=== PATIENT | female | born 1995 | race Caucasian/White ===

== ENCOUNTER 2017-09-06 20:28 | Emergency (ER) | payer MEDICAID | END 2017-09-06 21:15 | disposition home or self-care (01) | LOC: FTE 20:28 → E/R 21:15 | DX: J20.9 Acute bronchitis, unspecified (principal); J30.9 Allergic rhinitis, unspecified | CPT/HCPCS: 99283; Z7502 ==

== ENCOUNTER 2018-01-08 07:34 | Outpatient (CLI) | payer MEDICAID ==
[2018-01-08 08:41] LABS: ADD UMIC YES; UR AMORPHOUS CRYSTAL FEW /HPF (NONE SEEN); UR ASCORBIC ACID NEGATIVE (NEGATIVE); UR BILIRUBIN (Dip) NEGATIVE (NEGATIVE); UR BLOOD (Dip) 2+ mg/dL (NEGATIVE); UR CLARITY SLIGHTLY CLOUDY (CLEAR); UR COLOR YELLOW (YELLOW); UR GLUCOSE (Dip) NEGATIVE (NEGATIVE); UR KETONES (Dip) NEGATIVE (NEGATIVE); UR LEUKOCYTE ESTERASE (Dip) 2+ Leu/ul (NEGATIVE); UR MUCUS FEW /HPF (NONE SEEN); UR NITRITE (Dip) NEGATIVE (NEGATIVE); UR RBC 1 /HPF (0-5); UR SPECIFIC GRAVITY (Dip) 1.018 (1.003-1.030); UR SQUAMOUS EPITHELIAL CELL FEW /HPF (FEW); UR TOTAL PROTEIN (Dip) NEGATIVE (NEGATIVE); UR UROBILINOGEN (Dip) NEGATIVE (NEGATIVE); UR WBC 11 /HPF (0-5)
== END 2018-01-08 12:15 | disposition home or self-care (01) ==
LOC: OBT 07:34 → L-D 07:34 → OBT 12:15
DX: Z3A.35 35 weeks gestation of pregnancy (principal)
CPT/HCPCS: 76818; 81001; 87086

== ENCOUNTER 2018-02-08 19:29 | Outpatient (CLI) | payer MEDICAID ==
[2018-02-08] MEDS ORDERED: CEFTRIAXONE 1 GM/50 ML (PMX) 50 ML IVPB (22:00)
[2018-02-08] MEDS ORDERED: SOD CHLORIDE 0.9% 1,000 ML IV ×2 (22:00)
== END 2018-02-08 22:00 | disposition home or self-care (01) ==
LOC: OBT 19:29 → L-D 19:34 → OBT 22:00
DX: O12.13 Gestational proteinuria, third trimester (principal); O36.8330 Maternal care for abnormalities of the fetal heart rate or rhythm, third trimester, not applicable or unspecified; Z3A.39 39 weeks gestation of pregnancy
CPT/HCPCS: 76815; 76818

== ENCOUNTER 2018-02-10 17:12 | Inpatient (IN) | payer MEDICAID ==
[2018-02-10 18:12] LABS: RUPTURE FETAL MEMBRANES POSITIVE (NEGATIVE)
[2018-02-10] MEDS ORDERED: METHYLERGONOVINE 0.2 MG INJ IM (19:30)
[2018-02-10] MEDS ORDERED: OXYTOCIN 30 UNITS/LR 500 ML IV (19:30)
[2018-02-10] MEDS ORDERED: IBUPROFEN 600 MG TAB PO (19:30)
[2018-02-10] MEDS ORDERED: CARBOPROST 250 MCG INJ IM (19:30)
[2018-02-10] MEDS ORDERED: LIDOCAINE 1% (MPF) 30 ML INJ INJ (19:30)
[2018-02-10] MEDS ORDERED: MISOPROSTOL 200 MCG TAB PR (19:30)
[2018-02-10] MEDS ORDERED: MISOPROSTOL 100 MCG TAB PO (21:00)
[2018-02-10] MEDS: LACTATED RINGER'S 1,000 ML IV* (21:43)
[2018-02-10] MEDS: AMPICILLIN 2 GM/NS (PMX) 100 ML IV (21:43)
[2018-02-10] MEDS: MISOPROSTOL 25 MCG CAPSULE PO (22:12)
[2018-02-10 22:46] LABS: ADD MAN DIFF? NO
[2018-02-10 22:54] LABS: WHITE BLOOD COUNT 10.8 10^3/ul (4.8-10.8)
[2018-02-10 22:54] LABS: BASOPHIL # 0.1 10^3/ul (0.0-0.1); BASOPHILS % 0.5 % (0.0-2.0); EOSINOPHILS # 0.1 10^3/ul (0.0-0.5); HEMATOCRIT 35.7 % (37.0-47.0); HEMOGLOBIN 12.2 g/dl (12.0-16.0); LYMPHOCYTES # 2.5 10^3/ul (0.8-2.9); LYMPHOCYTES % 23.4 % (15.0-51.0); MEAN CORPUSCULAR HEMOGLOBIN 32.7 pg (29.0-33.0); MEAN CORPUSCULAR HGB CONC 34.2 g/dl (32.0-37.0); MEAN CORPUSCULAR VOLUME 95.7 fl (82.0-101.0); MEAN PLATELET VOLUME 12.5 fl (7.4-10.4); MONOCYTE # 0.6 10^3/ul (0.3-0.9); MONOCYTES % 5.5 % (0.0-11.0); NEUTROPHIL # 7.4 10^3/ul (1.6-7.5); NEUTROPHILS % 68.5 % (39.0-77.0); PLATELET COUNT 203 10^3/UL (140-415); RED BLOOD COUNT 3.73 10^6/ul (4.20-5.40); RED CELL DISTRIBUTION WIDTH 12.5 % (11.5-14.5)
[2018-02-10 23:13] LABS: INR 0.91; PROTIME 12.3 Sec (11.9-14.9)
[2018-02-10 23:14] LABS: PARTIAL THROMBOPLASTIN TIME 26.4 Sec (25.0-35.0)
[2018-02-10 23:43] LABS: HEPATITIS B SURFACE ANTIGEN NEGATIVE (NEGATIVE)
[2018-02-11] MEDS: AMPICILLIN 1 GM/NS (PMX) 50 ML IV ×6 (01:35→21:11)
[2018-02-11] MEDS: MISOPROSTOL 25 MCG CAPSULE PO ×2 (01:35→05:56)
[2018-02-11] MEDS: LACTATED RINGER'S 1,000 ML IV* ×3 (06:00→19:30)
[2018-02-11] MEDS ORDERED: OXYTOCIN 30 UNITS/LR 500 ML IV (11:00)
[2018-02-11] MEDS: OXYTOCIN 30 UNITS/LR 500 ML IV (12:04)
[2018-02-11 15:37] LABS: RAPID PLASMA REAGIN NONREACTIVE (NR)
[2018-02-11] MEDS: BUTORPHANOL 2 MG INJ IV ×2 (17:52→22:33)
[2018-02-11] MEDS: DEXTROSE 5%-LR 1,000 ML IV (21:11)
[2018-02-12] MEDS: AMPICILLIN 1 GM/NS (PMX) 50 ML IV ×5 (02:16→17:00)
[2018-02-12] MEDS: LACTATED RINGER'S 1,000 ML IV* ×4 (05:50→17:10)
[2018-02-12] MEDS ORDERED: FENTAnyl 2MCG/ML-ROPIV 0.2% 100 ML (06:10)
[2018-02-12] MEDS: MINERAL OIL LIGHT 10 ML VIAL TOP (08:50)
[2018-02-12] MEDS: OXYTOCIN 30 UNITS/LR 500 ML IV ×2 (09:17→14:24)
[2018-02-12] MEDS ORDERED: METHYLERGONOVINE 0.2 MG INJ IM (09:30)
[2018-02-12] MEDS ORDERED: OXYTOCIN 30 UNITS/LR 500 ML IV (09:30)
[2018-02-12] MEDS ORDERED: MISOPROSTOL 200 MCG TAB PR (09:30)
[2018-02-12] MEDS ORDERED: CARBOPROST 250 MCG INJ IM (09:30)
[2018-02-12] MEDS ORDERED: DIBUCAINE 1% 30 GM OINT PR (09:30)
[2018-02-12] MEDS ORDERED: HYDROCODONE/APAP (5/325) TAB PO ×2 (09:30)
[2018-02-12] MEDS: IBUPROFEN 600 MG TAB PO ×3 (12:31→23:37)
[2018-02-12] MEDS: BENZOCAINE 20% 56 ML SPRAY TOP (13:08)
[2018-02-12] MEDS: WITCH HAZEL/GLYCERIN PAD PR (13:08)
[2018-02-12] MEDS: LANOLIN 7 GM TUBE TOP (13:09)
[2018-02-13] MEDS: IBUPROFEN 600 MG TAB PO ×4 (05:55→23:36)
[2018-02-13 08:51] LABS: ADD MAN DIFF? NO
[2018-02-13 08:58] LABS: WHITE BLOOD COUNT 18.2 10^3/ul (4.8-10.8)
[2018-02-13 08:58] LABS: BASOPHIL # 0.1 10^3/ul (0.0-0.1); BASOPHILS % 0.3 % (0.0-2.0); EOSINOPHILS # 0.1 10^3/ul (0.0-0.5); EOSINOPHILS % 0.6 % (0.0-7.0); HEMATOCRIT 31.9 % (37.0-47.0); HEMOGLOBIN 10.6 g/dl (12.0-16.0); LYMPHOCYTES # 3.5 10^3/ul (0.8-2.9); LYMPHOCYTES % 19.3 % (15.0-51.0); MEAN CORPUSCULAR HEMOGLOBIN 32.9 pg (29.0-33.0); MEAN CORPUSCULAR HGB CONC 33.2 g/dl (32.0-37.0); MEAN CORPUSCULAR VOLUME 99.1 fl (82.0-101.0); MEAN PLATELET VOLUME 12.9 fl (7.4-10.4); MONOCYTE # 0.9 10^3/ul (0.3-0.9); MONOCYTES % 5.2 % (0.0-11.0); NEUTROPHIL # 13.4 10^3/ul (1.6-7.5); NEUTROPHILS % 73.8 % (39.0-77.0); PLATELET COUNT 156 10^3/UL (140-415); RED BLOOD COUNT 3.22 10^6/ul (4.20-5.40); RED CELL DISTRIBUTION WIDTH 12.9 % (11.5-14.5)
[2018-02-14] MEDS: IBUPROFEN 600 MG TAB PO ×3 (05:30→17:42)
[2018-02-14 08:27] LABS: ADD MAN DIFF? NO
[2018-02-14 08:31] LABS: WHITE BLOOD COUNT 15.2 10^3/ul (4.8-10.8)
[2018-02-14 08:31] LABS: BASOPHIL # 0.1 10^3/ul (0.0-0.1); BASOPHILS % 0.5 % (0.0-2.0); EOSINOPHILS # 0.2 10^3/ul (0.0-0.5); HEMATOCRIT 32.6 % (37.0-47.0); HEMOGLOBIN 10.7 g/dl (12.0-16.0); LYMPHOCYTES # 3.8 10^3/ul (0.8-2.9); LYMPHOCYTES % 24.9 % (15.0-51.0); MEAN CORPUSCULAR HEMOGLOBIN 32.3 pg (29.0-33.0); MEAN CORPUSCULAR HGB CONC 32.8 g/dl (32.0-37.0); MEAN CORPUSCULAR VOLUME 98.5 fl (82.0-101.0); MEAN PLATELET VOLUME 11.8 fl (7.4-10.4); MONOCYTE # 0.8 10^3/ul (0.3-0.9); MONOCYTES % 5.3 % (0.0-11.0); NEUTROPHIL # 10.2 10^3/ul (1.6-7.5); NEUTROPHILS % 67.2 % (39.0-77.0); PLATELET COUNT 169 10^3/UL (140-415); RED BLOOD COUNT 3.31 10^6/ul (4.20-5.40); RED CELL DISTRIBUTION WIDTH 12.7 % (11.5-14.5)
[2018-02-14] MEDS: MEASLES,MUMPS,RUBELLA VACCINE INJ SC* (08:57)
[2018-02-14] MEDS: VARICELLA VACCINE LIVE/PF 1,350 UNIT/0.5 ML ML SC* (08:58)
[2018-02-14] MEDS: MEDROXYPROGESTERONE 150 MG INJ SYG IM (10:15)
[2018-02-14] MEDS: DIPHTH/TET/ACEL PERTUSS (ADULT) 0.5 ML VIAL IM* (10:16)
== END 2018-02-14 19:07 | disposition home or self-care (01) | DRG 775 ==
LOC: OBT 17:12 → L-D 02-12 09:21 → PP1 02-12 11:08 → OBT 19:32 → L-D 19:25
PROVIDERS: Obstetrics & Gynecology
PROC: 3E033VJ Introduction of Other Hormone into Peripheral Vein, Percutaneous Approach (ICD-10-PCS; 2018-02-10)
PROC: 10E0XZZ Delivery of Products of Conception, External Approach (ICD-10-PCS; principal; 2018-02-12)
PROC: 0KQM0ZZ Repair Perineum Muscle, Open Approach (ICD-10-PCS; 2018-02-12)
DX: O70.1 Second degree perineal laceration during delivery (principal); Z37.0 Single live birth; O42.92 Full-term premature rupture of membranes, unspecified as to length of time between rupture and onset of labor; Z3A.40 40 weeks gestation of pregnancy
CPT/HCPCS: 62319; 76818; 84112; 85025; 85610; 85730; 86592; 86850; 86900; 86901; 87340; 90715